=== PATIENT | male | born 1980 | race Caucasian/White ===

== ENCOUNTER 2021-03-18 13:37 | Emergency (ER) | payer OTHER ==
[~2021-03-18] VITALS: Ht 190.5 cm; Wt 75.0 kg
[2021-03-18 13:48] VITALS: BP 122/71
[2021-03-18] MEDS ORDERED: LIDOCAINE 1%/EPI 1:100,000 20 ML VIAL. IJ ONE (14:00)
--- NOTE | 2021-03-18 14:45 | PHYS DOC ---
Past History Past Medical History: Other Additional Past Medical Histor: Multiple sclerosis Past Surgical History: No Surgical History Alcohol Use: Occasionally Drug Use: Marijuana General Adult EDM: Chief Complaint: LACERATION/AVULSION HPI: HPI: 40-year-old male presents with laceration of the left wrist. The patient was stripping wire with a utility knife. He had just changed to a new bleed. The knife cut through the wire and then kept going and cut his left wrist. He applied immediate pressure, wrapped in gauze, and then came the emergency room. The patient's tetanus shot is within the last 5 years. He is adamant that this was an accident and he had not cut himself on purpose. He has no other complaints this time. Review of Systems: Review of Systems: Constitutional: Denies fever or chills Eyes: Denies change in visual acuity HENT: Denies nasal congestion or sore throat Respiratory: Denies cough or shortness of breath Cardiovascular: Denies chest pain or edema GI: Denies abdominal pain, nausea, vomiting, bloody stools or diarrhea : Denies dysuria Musculoskeletal: Denies back pain or joint pain Integument: 4 cm laceration left wrist Neurologic: Denies headache, focal weakness or sensory changes Endocrine: Denies polyuria or polydipsia Lymphatic: Denies swollen glands Psychiatric: Denies depression or anxiety Current Medications: Current Meds: Current Medications Medications (Trade) Dose Ordered Sig/Marisol Start Time Stop Time Status Last Admin Dose Admin Lidocaine/ Epinephrine (Xylocaine 1%-Epi 1:100,000) 20 ml 1X ONCE 03/18/21 14:00 03/18/21 14:02 DC 03/18/21 13:55 20 ML Allergies: Allergies: Allergies Coded Allergies Type Severity Reaction Last Updated Verified No Known Drug Allergies 10/19/15 No Physical Exam: PE: Constitutional: Well developed, well nourished, no acute distress, non-toxic appearance. [] HENT: Normocephalic, atraumatic, bilateral external ears normal, oropharynx moist, no oral exudates, nose normal. [] Eyes: PERRLA, EOMI, conjunctiva normal, no discharge. [] Neck: Normal range of motion, no tenderness, supple, no stridor. [] Cardiovascular:Heart rate regular rhythm, no murmur [] Lungs & Thorax: Bilateral breath sounds clear to auscultation [] Abdomen: Bowel sounds normal, soft, no tenderness, no masses, no pulsatile masses. [] Skin: 4 cm linear laceration of the left wrist [] Back: No tenderness, no CVA tenderness. [] Extremities: No tenderness, no cyanosis, no clubbing, ROM intact, no edema. [] Neurologic: Alert and oriented X 3, normal motor function, normal sensory function, no focal deficits noted. [] Psychologic: Affect normal, judgement normal, mood normal. [] Current Patient Data: Vital Signs: Vital Signs Date Time Temp Pulse Resp B/P (MAP) Pulse Ox O2 Delivery O2 Flow Rate FiO2 03/18/21 13:48 98.3 76 18 122/71 (88) 96 Room Air EKG: EKG: [] Radiology/Procedures: Radiology/Procedures: [] Heart Score: C/O Chest Pain: N/A Risk Factors: Risk Factors: DM, Current or recent (<one month) smoker, HTN, HLP, family history of CAD, obesity. Risk Scores: Score 0 - 3: 2.5% MACE over next 6 weeks - Discharge Home Score 4 - 6: 20.3% MACE over next 6 weeks - Admit for Clinical Observation Score 7 - 10: 72.7% MACE over next 6 weeks - Early Invasive Strategies Course & Med Decision Making: Course & Med Decision Making Pertinent Labs and Imaging studies reviewed. (See chart for details) On initial exam, the patient's bleeding was controlled. His sensation is intact. He has full flexion extension of the fingers. I repaired the wound with sutures. See note below for more details. No antibiotics are indicated. He is stable for discharge at this time. [] Dragon Disclaimer: Dragon Disclaimer: This electronic medical record was generated, in whole or in part, using a voice recognition dictation system. Laceration Repair Lac Repair Indication: [] 4 cm linear laceration of the left wrist Procedure: I obtained verbal consent from the patient for suture repair of his left wrist laceration. The wound was anesthetized with 1% lidocaine with epinephrine. A total of 3 cc was used. Once good anesthesia was achieved, I was able to fully irrigate the wound and explored. I could see one of his flexor tendons but it was intact and injured. Range of motion was intact. Neurovascularly intact. I repaired the wound with interrupted sutures of 4-0 Ethilon. There were 5 sutures placed. Bleeding was controlled. There was good approximation. Tetanus was already up-to-date. Total repaired wound length: 4 cm Other Items: [None The patient tolerated the procedure well. Complications: None. Departure Departure: Impression: Primary Impression: Laceration of left wrist Qualified Codes: S61.512A - Laceration without foreign body of left wrist, initial encounter Disposition: HOME / SELF CARE / HOMELESS Condition: IMPROVED Referrals: TRINY SUTHERLAND APRN (PCP) Patient Instructions: Sutured Wound Care, [id number] Additional Instructions: You should have your sutures removed in 7 to 10 days. Do not go longer than 14 days without having them removed. Keep the area clean and dry for the next 48 hours. After that, you may shower normally. Do not go swimming or soak in a bathtub. Keep the wound covered while working. IRAM DUARTE DO Mar 18, 2021 14:45
== END 2021-03-18 14:52 | disposition home or self-care (01) ==
LOC: ER 13:37
DX: S61.512A Laceration without foreign body of left wrist, initial encounter (principal); F12.10 Cannabis abuse, uncomplicated; W26.0XXA Contact with knife, initial encounter; Y93.89 Activity, other specified; Y92.89 Other specified places as the place of occurrence of the external cause; Y99.8 Other external cause status
CPT/HCPCS: 12002; 99282-25